=== PATIENT | female | born 1985 | race Caucasian/White ===

== ENCOUNTER 2020-03-28 15:49 | Emergency (ER) | payer OTHER ==
[~2020-03-28] VITALS: Ht 165.1 cm; Wt 68.0 kg
[~2020-03-28 15:49] MED LIST: ATIVAN1 MG PO; CEPACOL SORE TH1 LO3 MM; FYCOMPA6 MG PO; NORCO1 TA2 PO
[2020-03-28 16:12] VITALS: Ht 165.1 cm; Wt 68.0 kg
[2020-03-28 20:07] VITALS: BP 140/81
== END 2020-03-28 20:00 | disposition home or self-care (01) ==
LOC: ED 15:49
DX: S01.511A Laceration without foreign body of lip, initial encounter (principal); X58.XXXA Exposure to other specified factors, initial encounter; Y93.89 Activity, other specified; Y92.89 Other specified places as the place of occurrence of the external cause; Y99.8 Other external cause status; G80.9 Cerebral palsy, unspecified
CPT/HCPCS: 90715; J2001; J3490

== ENCOUNTER 2020-03-30 10:46 | Emergency (ER) | payer OTHER ==
[~2020-03-30] VITALS: Ht 152.4 cm; Wt 106.1 kg
[2020-03-30 11:06] VITALS: BP 127/92; Ht 152.4 cm; Wt 106.1 kg
== END 2020-03-30 12:20 | disposition home or self-care (01) ==
LOC: ED 10:46
DX: S01.511D Laceration without foreign body of lip, subsequent encounter (principal); G80.9 Cerebral palsy, unspecified; G40.909 Epilepsy, unspecified, not intractable, without status epilepticus; F79 Unspecified intellectual disabilities; E66.9 Obesity, unspecified; Z88.1 Allergy status to other antibiotic agents; Z68.42 Body mass index [BMI] 45.0-49.9, adult; X58.XXXD Exposure to other specified factors, subsequent encounter

== ENCOUNTER 2020-10-01 09:25 | Emergency (ER) | payer OTHER ==
[~2020-10-01] VITALS: Ht 152.4 cm; Wt 99.3 kg
[2020-10-01 09:30] VITALS: BP 185/58
[2020-10-01] MEDS ORDERED: ANTIBIOTIC O500 U/GM TOP (09:48)
== END 2020-10-01 10:04 | disposition home or self-care (01) ==
LOC: ED 09:25
DX: S01.01XA Laceration without foreign body of scalp, initial encounter (principal); G80.9 Cerebral palsy, unspecified; G40.909 Epilepsy, unspecified, not intractable, without status epilepticus; Z88.1 Allergy status to other antibiotic agents; W17.89XA Other fall from one level to another, initial encounter; Y93.89 Activity, other specified; Y92.89 Other specified places as the place of occurrence of the external cause; Y99.8 Other external cause status
CPT/HCPCS: 90715